=== PATIENT | female | born 1970 | race Caucasian/White ===

== ENCOUNTER 2018-09-04 05:29 | Emergency (ER) | payer BC ==
[2018-09-04] MEDS ORDERED: Lorazepam PYXIS KEY PRN (05:56)
[2018-09-04] MEDS ORDERED: LORazepam INJ* 2 MG/ML 1 ML VIAL IV PUSH ONE (05:56)
[2018-09-04 06:08] LABS: ABS Basophils 0.1 10^3/ul (0-0.2); ABS Eosinophils 0.3 10^3/ul (0-0.6); ABS Lymphocytes 2.8 10^3/ul (1.0-4.8); ABS Monocytes 0.6 10^3/ul (0-0.8); ABS Neutrophils 6.5 10^3/ul (1.5-7.7); Eosinophil % 2.6 %; Hematocrit 38 % (35-47); Hemoglobin 12.6 g/dL (12.0-16.0); Lymphocyte % 27.5 %; Mean Corpuscular HGB Conc 33 g/dL (31-36); Mean Corpuscular Hemoglobin 28 pg (27-31); Mean Corpuscular Volume 84 fL (80-97); Mean Platelet Volume 7.6 fL (7.4-10.4); Nucleated Red Blood Cells % 0.1; Platelet Count 226 10^3/uL (150-450); Red Blood Count 4.46 10^6 /uL (3.70-4.87); Red Cell Distribution Width 13 % (10-15); White Blood Count 10.2 10^3/uL (3.5-10.8)
--- NOTE | 2018-09-04 06:13 | ED ---
HPI Chest Pain - HPI Summary HPI Summary: 48 year old female presents chest pain today. States she woke up out of sleep. She admits to shortness of breath and diaphoretic. states pain was 9 out of 10 and radiated to right arm. She denies any vomiting. States admits to little nauseous. She denies any abdominal pain. She took an antacid seemed to make the symptoms worse. She states is anxious. She states that they called EMS and she was given 4 baby aspirin and 2 nitro and she had relief for her symptoms. She states that she had chest pain and tightness in the center of the chest that did not radiate anywhere. Has no history of diabetes or high blood pressure. is nonsmoker. No family history of cardiac disease. - History of Current Complaint Chief Complaint: EDChestPainROMI Time Seen by Provider: 09/04/18 05:45 Pain Intensity: 0 - Allergy/Home Medications Allergies/Adverse Reactions: Allergies Allergy/AdvReac Type Severity Reaction Status Date / Time Sulfa (Sulfonamide Allergy Hives Verified 09/04/18 06:12 Antibiotics) sulfamethoxazole Allergy Rash Verified 09/04/18 06:12 [From Bactrim] trimethoprim [From Bactrim] Allergy Rash Verified 09/04/18 06:12 Home Medications: Home Medications Albuterol Sulfate [Albuterol Sulfate Hfa] 2 puff INH Q4HR 09/04/18 [History Confirmed 09/04/18] Loratadine [Claritin] 10 mg PO DAILY 09/04/18 [History Confirmed 09/04/18] buPROPion SR TAB* [Wellbutrin SR TAB*] 150 mg PO BID 09/04/18 [History Confirmed 09/04/18] PMH/Surg Hx/FS Hx/Imm Hx Endocrine/Hematology History: Denies: Hx Anticoagulant Therapy, Hx Diabetes Cardiovascular History: Denies: Hx Hypertension - Immunization History Immunizations Up to Date: Yes Infectious Disease History: No Infectious Disease History: Denies: Traveled Outside the [place] in Last 30 Days - Family History Known Family History: Negative: Cardiac Disease - Social History Alcohol Use: Occasionally Substance Use Type: Reports: None Smoking Status (MU): Never Smoked Tobacco Review of Systems Positive: Skin Diaphoresis. Negative: Fever Positive: Chest Pain. Negative: Palpitations Positive: Shortness Of Breath. Negative: Cough All Other Systems Reviewed And Are Negative: Yes Physical Exam Triage Information Reviewed: Yes Vital Signs On Initial Exam: Initial Vitals Temp Pulse Resp BP Pulse Ox 97.9 F 63 19 109/69 99 09/04/18 05:37 09/04/18 05:37 09/04/18 05:37 09/04/18 05:37 09/04/18 05:37 Vital Signs Reviewed: Yes Appearance: Positive: Well-Appearing Skin: Positive: Warm, Dry Head/Face: Positive: Normal Head/Face Inspection Eyes: Positive: Normal, Conjunctiva Clear ENT: Positive: Pharynx normal Respiratory/Lung Sounds: Positive: Clear to Auscultation, Breath Sounds Present Cardiovascular: Positive: Normal, RRR Abdomen Description: Positive: Nontender, Soft Bowel Sounds: Positive: Present Musculoskeletal: Positive: Normal Neurological: Positive: Normal Psychiatric: Positive: Normal Diagnostics - Vital Signs Vital Signs Temp Pulse Resp BP Pulse Ox 09/04/18 05:41 63 09/04/18 05:37 97.9 F 63 19 109/69 99 - Laboratory Lab Results: Lab Results 09/04/18 Range/Units 06:02 WBC 10.2 (3.5-10.8) 10^3/uL RBC 4.46 (3.70-4.87) 10^6 /uL Hgb 12.6 (12.0-16.0) g/dL Hct 38 (35-47) % MCV 84 (80-97) fL MCH 28 (27-31) pg MCHC 33 (31-36) g/dL RDW 13 (10-15) % Plt Count 226 (150-450) 10^3/uL MPV 7.6 (7.4-10.4) fL Neut % (Auto) 63.4 % Lymph % (Auto) 27.5 % [place] % (Auto) 5.6 % Eos % (Auto) 2.6 % Baso % (Auto) 0.9 % Absolute Neuts (auto) 6.5 (1.5-7.7) 10^3/ul Absolute Lymphs (auto) 2.8 (1.0-4.8) 10^3/ul Absolute Monos (auto) 0.6 (0-0.8) 10^3/ul Absolute Eos (auto) 0.3 (0-0.6) 10^3/ul Absolute Basos (auto) 0.1 (0-0.2) 10^3/ul Absolute Nucleated RBC 0.0 10^3/ul Nucleated RBC % 0.1 Result Diagrams: 09/04/18 06:02 09/04/18 06:02 Lab Statement: Any lab studies that have been ordered have been reviewed, and results considered in the medical decision making process. - Radiology chest Radiology Interpretation Completed By: Radiologist Summary of Radiographic Findings: IMPRESSION: NO ACTIVE CARDIOPULMONARY DISEASE IS NOTED. - Ultrasound No standard instances Ultrasound Interpretation Completed By: Radiologist - EKG No standard instances Cardiac Rate: NL EKG Rhythm: Sinus Rhythm Summary of EKG Findings: sinus rhythm Re-Evaluation - Re-Evaluation First Eval Re-Evaluation Time: 06:47 Change: Improved Comment: symptoms resolved after ativan Second Eval Re-Evaluation Time: 08:53 Comment: no pain still Third Eval Re-Evaluation Time: 09:47 Comment: discussed results still chest pain free Chest Pain Course/Dx - Course Course Of Treatment: 48 year old female presents chest pain today. States she woke up out of sleep. She admits to shortness of breath and diaphoretic. She denies any vomiting. States admits to little nauseous. She denies any abdominal pain. She took an antacid seemed to make the symptoms worse. She states is anxious. She states that they called EMS and she was given 4 baby aspirin and 2 nitro and she had relief for her symptoms. She states that she had chest pain and tightness in the center of the chest that did not radiate anywhere. Has no history of diabetes or high blood pressure. is nonsmoker. No family history of cardiac disease. on exam lungs CTA. heart RRR. ekg shows sinus rhythm. Will in the ED patient experienced some tightness that is relief with Ativan. troponin zerox 2. d-dimer negative. bnp normal. wbc normal. chest xray normal. patient has a physicial tomorrow. discussed case with dr betancur has low risk factor for ACS so can follow up tomorrow with primary for stress test outpatient. - Chest Pain Differential Diagnosis/HQI/PQRI: Angina, Chest Wall, GI Disease - Diagnoses Provider Diagnoses: Atypical chest pain Discharge - Sign-Out/Discharge Documenting (check all that apply): Patient Departure Patient Received Moderate/Deep Sedation with Procedure: No - Discharge Plan Condition: Good Disposition: HOME Patient Education Materials: Chest Pain (ED) Referrals: Gela Marroquin MD [Medical Doctor] - Additional Instructions: follow up with primary as scheduled tomorrow Return to ED if develop any new or worsening symptoms - Billing Disposition and Condition Condition: GOOD Disposition: Home
[2018-09-04 06:31] LABS: Albumin 3.6 g/dL (3.2-5.2); Albumin/Globulin Ratio 1.3 (1-3); BUN/Creatinine Ratio 18.4 (8-20); Calcium 8.8 mg/dL (8.6-10.3); EGFR African American 83.4 (>60); EGFR Non-African American 68.9 (>60); Globulin 2.7 g/dL (2-4); Potassium 3.8 mmol/L (3.5-5.0); Total Bilirubin 0.5 mg/dL (0.2-1.0); Total Protein 6.3 g/dL (6.4-8.9)
[2018-09-04 08:25] LABS: HDL Cholesterol 55.4 mg/dL
== END 2018-09-04 10:20 | disposition home or self-care (01) ==
LOC: ED 05:29
DX: R07.89 Other chest pain (principal); Z79.899 Other long term (current) drug therapy
CPT/HCPCS: 36415; 71045; 80053; 80061; 83605; 83880; 84484; 85025; 85379; 93005; 96374; 99284; J2060